=== PATIENT | male | born 1965 | race Caucasian/White ===

== ENCOUNTER → 2017-04-19 | Outpatient (CLI) | payer OTHER ==
--- NOTE | 2017-04-19 14:55 | PN ---
PROGRESS NOTE DATE OF SERVICE: 04/19/2017 A 51-year-old gentleman who has [facility] treatment of obstructive sleep apnea-hypopnea syndrome. I saw patient previously about 2 years ago. Patient continued to use his CPAP equipment every night without significant problem according to him. He is using CPAP even when he is taking any naps. No snoring with the machine. [place] Sleepiness Scale is 6, which is in normal range. I checked his CPAP unit. Usage is 25 nights more than 4 hours. Apnea-hypopnea index is only 1.2, which is absolutely perfect. Sometimes there is a leak from his mask. [place] Sleepiness Scale today is 6. MEDICATIONS: Lisinopril, metoprolol. PHYSICAL EXAM: Patient in no distress. BP 128/75, HR 62, RR 16, height 5, 7, weight 281, BMI 44, temp 97.6, oxygen saturation at room air 95%. OROPHARYNX: Extremely low position of soft palate. ABDOMEN: Obese. Neck Supple, no JVD. Thyroid is not palpable. LUNGS Clear to percussion and to auscultation. Good air exchange. No wheezing or rhonchi. HEART S1, S2 regular. No murmurs, gallops, or rubs. EXTREMITIES No clubbing or cyanosis. BUSINESS PROCESS EXPERT Awake, alert, and oriented X3. Cranial nerves 2 to 7 intact. There is no fasciculation or atrophy. noted. No focal deficits observed. IMPRESSION: 1. Obstructive sleep apnea-hypopnea syndrome. The patient demonstrated close to 100% compliance with treatment benefitting from treatment. 2. Obesity, patient increased his weight since previous visit. 3. History of atrial fibrillation, status post defibrillation and ablation procedure. Presently, normal sinus rate. 4. Hypertension. 5. Obesity. PLAN: 1. Prescription for all necessary CPAP supplies including mask, tube, filters. 2. Losing weight. 3. Sleep hygiene with regular time in bed for at least 8 hours. 4. No driving if feeling sleepiness. 5. Followup visit in 1 year or earlier if patient has any problems. Thank you very much for allowing me to participate in the management of your patient. Sincerely, Lalit Collins MD, PhD, FAASM Diplomat of [employer] [facility] MMODL / IJN: [id number] /
== END | disposition home or self-care (01) ==
LOC: SLEEP 13:48
PROVIDERS: ATTEND Internal Medicine
DX: G47.33 Obstructive sleep apnea (adult) (pediatric) (principal); E66.9 Obesity, unspecified; I10 Essential (primary) hypertension; Z99.89 Dependence on other enabling machines and devices; Z79.899 Other long term (current) drug therapy; Z68.41 Body mass index [BMI] 40.0-44.9, adult; Z86.79 Personal history of other diseases of the circulatory system

== ENCOUNTER 2018-01-30 02:16 | Inpatient (IN) | payer OTHER ==
[2018-01-30] MEDS ORDERED: HEPARIN SODIUM,PORCINE 5,000 UNIT/ML 1 ML VIAL IV STA (02:36)
[2018-01-30] MEDS ORDERED: SODIUM CHLORIDE 0.9% 1,000 ML IV STA ×2 (02:36)
[2018-01-30] MEDS ORDERED: MORPHINE SULFATE 4 MG/ML SYRINGE IVP STA (02:36)
[2018-01-30] MEDS ORDERED: ASPIRIN 81 MG PO STA (02:36)
--- NOTE | 2018-01-30 02:40 | ED ---
Chest Pain HPI - General Source: patient, RN notes reviewed, old records reviewed Mode of arrival: ambulatory Limitations: no limitations <Yanet Schmidt - Last Filed: 01/30/18 03:43> <Ailyn Landrum - Last Filed: 01/30/18 06:26> - General Chief Complaint: Chest Pain Stated Complaint: chest pain Time Seen by Provider: 01/30/18 02:28 - History of Present Illness Initial Comments: Patient is a 52-year-old male, who is a smoker with chief complaint of onset of chest pain at 10:30 this evening. He reports the pain radiates down the left shoulder. He reports no nausea or diaphoresis. He has a history of A. fib and had cardiac ablation by Dr. Temple in 2016. Patient states that he has a history of hypertension. He did take some Tylenol around 11:30 but states the symptoms continue to persist. Patient relates he has had no fevers or chills denies any cough or so she had shortness of breath. He states that he is feeling a heaviness on his chest. He denies any abdominal pain. (Yanet Schmidt) - Related Data Home Medications Medication Instructions Recorded Confirmed Lisinopril [Zestril] 5 mg PO BID 09/28/14 05/03/15 Rivaroxaban [Xarelto] 20 mg PO W/SUPPER 09/28/14 05/03/15 Albuterol Inhaler [Ventolin Hfa 1 - 2 puff INHALATION Q6HR PRN 01/14/15 05/04/15 Inhaler] Ibuprofen [Motrin] 200 - 400 mg PO Q6HR PRN 01/14/15 05/04/15 Metoprolol Tartrate [Lopressor] 50 mg PO BID 05/03/15 05/03/15 Allergies Allergy/AdvReac Type Severity Reaction Status Date / Time No Known Allergies Allergy Verified 01/30/18 02:27 Review of Systems ROS Other: All systems not noted in ROS Statement are negative. <Yanet Schmidt - Last Filed: 01/30/18 03:43> ROS Other: All systems not noted in ROS Statement are negative. <Ailyn Landrum - Last Filed: 01/30/18 06:26> ROS Statement: Those systems with pertinent positive or pertinent negative responses have been documented in the HPI. EKG Findings - EKG Comments: EKG Findings:: EKG performed at 223 shows sinus rhythm with PACs. He. Infarct age undetermined. Abnormal EKG noted. Ventricular rate of 66 bpm. OH interval is 158 ms. QRS duration is 112 ms. QT QTc is 420/440 ms. Evidence of T-wave inversions in lead II, III, and F aVF. <Yanet Schmidt - Last Filed: 01/30/18 03:43> Past Medical History Past Medical History: Atrial Fibrillation, Hypertension Additional Past Medical History / Comment(s): sleep apnea. History of Any Multi-Drug Resistant Organisms: None Reported Past Surgical History: Cardiac Ablation, Heart Catheterization Additional Past Surgical History / Comment(s): cardioversion Past Anesthesia/Blood Transfusion Reactions: Postoperative Nausea & Vomiting ( PONV) Past Psychological History: No Psychological Hx Reported Smoking Status: Current every day smoker Past Alcohol Use History: Rare Past Drug Use History: None Reported - Past Family History Mother Family Medical History: No Reported History <Yanet Schmidt - Last Filed: 01/30/18 03:43> General Exam Limitations: no limitations General appearance: alert, in no apparent distress Head exam: Present: atraumatic, normocephalic, normal inspection Eye exam: Present: normal appearance, PERRL, EOMI. Absent: scleral icterus, conjunctival injection, periorbital swelling ENT exam: Present: normal exam, mucous membranes moist Neck exam: Present: normal inspection. Absent: tenderness, meningismus, lymphadenopathy Respiratory exam: Present: normal lung sounds bilaterally. Absent: respiratory distress, wheezes, rales, rhonchi, stridor Cardiovascular Exam: Present: regular rate, normal rhythm, normal heart sounds. Absent: systolic murmur, diastolic murmur, rubs, gallop, clicks GI/Abdominal exam: Present: soft, normal bowel sounds. Absent: distended, tenderness, guarding, rebound, rigid Extremities exam: Present: normal inspection, full ROM, normal capillary refill. Absent: tenderness, pedal edema, joint swelling, calf tenderness Back exam: Present: normal inspection Neurological exam: Present: alert, oriented X3, CN II-XII intact Psychiatric exam: Present: normal affect, normal mood Skin exam: Present: warm, dry, intact, normal color. Absent: rash <Yanet Schmidt - Last Filed: 01/30/18 03:43> <Ailyn Landrum P - Last Filed: 01/30/18 06:26> - General Exam Comments Initial Comments: Patient is a 52-year-old male. Alert and oriented. Patient appears in no acute distress at this time. Patient relates his pain is a 4 out of 10. ( Yanet Schmidt) Vital Signs 01/30/18 01/30/18 01/30/18 02:22 03:34 03:55 Temperature 97.6 F Pulse Rate 63 60 63 Respiratory 20 17 17 Rate Blood Pressure 157/89 165/90 141/75 O2 Sat by Pulse 94 L 96 95 Oximetry 01/30/18 01/30/18 03:58 05:39 Temperature Pulse Rate 60 53 L Respiratory 17 17 Rate Blood Pressure 133/61 160/78 O2 Sat by Pulse 94 L 95 Oximetry Chest Pain MDM <Yanet Schmidt - Last Filed: 01/30/18 03:43> <Ailyn Landrum P - Last Filed: 01/30/18 06:26> - MDM 22-year-old male presents today with onset of chest pain starting at 10:30 this evening. Associated symptoms with pain remained on the left arm. Patient is a smoker, with a history of hypertension. His catalogue and special products manager was Dr. Temple who completed an ablation in 2016 for A. fib. Patient at this time does show ischemic changes on this EKG with inferior T waves in leads II, III, and F aVF. Patient was started on heparin, given an aspirin. He refused morphine. Chest x-ray shows cardiomegaly. And has a significantly elevated troponin of 1.750. Patient's case transferred over to Dr. Landrum, She will consult cardiology. Dr. Landrum discussed the case with Dr. Martino at this time. He will does request we give the Patient nitro. At this time I'll that the Patient for NSTEMI. (Yanet Schmidt) Patient was seen and evaluated with the mid-level provider, 52-year-old male with a history of hypertension, obesity, tobacco abuse who presents to the emergency department today with chest pain. Patient reports he also had chest pain with exertion while playing softball last week and chest pain that occurred at rest on Sunday. Both those episodes of chest pain or similar to this but resolved with rest. This chest pain began while at rest but persisted for multiple hours prompted him to come to the ER for further evaluation. is high risk for cardiac etiology of his chest pain. His initial EKG did reveal T-wave inversions in leads II, III, and F aVF which are suggestive of ischemia but no definitive ischemia or infarction. A cardiac workup and heparin were ordered. Initial chest x-ray with no acute abnormalities, heparin was started after chest x-ray was obtained. Initial troponin resulted elevated at 1.75, at that time cardiology was consult at. Dr. Hernandez recommended that we attempt treatment with nitro. Patient received 2 sublingual nitro and reported some improvement in the discomfort in his chest. Care was again discussed with Dr. Hernandez who recommended an IV nitro infusion and a plan for cardiac catheterization at 6:30 AM. Nitro infusion was ordered and initiated. Patient was admitted but decision was made to keep the patient in the emergency department for continuous observation by a physician until he goes to cardiac catheterization. Patient was noted to sleep comfortably, snore loudly throughout the remainder this ER visit. biological lab technician team arrived at approximately 6:10 AM consented the patient and transported to cardiac catheterization suite. (Ailyn Landrum) Disposition Is patient prescribed a controlled substance at d/c from ED?: No Time of Disposition: 03:45 <Yanet Schmidt - Last Filed: 01/30/18 03:43> <Ailyn Landrum - Last Filed: 01/30/18 06:26> Clinical Impression: NSTEMI (non-ST elevated myocardial infarction) Disposition: ADMITTED IP TO THIS HOSP Condition: Stable
[2018-01-30] MEDS ORDERED: HEPARIN SOD,PORK IN 0.45% NACL 25,000 UNIT in 0.45% NACL 1 500ML.BAG IV SCH (02:45)
[2018-01-30 02:59] LABS: Basophils # (A) 0.1 k/uL (0-0.2); Basophils % (A) 0 %; Eosinophils # (A) 0.1 k/uL (0-0.7); Eosinophils % (A) 1 %; HCT 46.6 % (39.0-53.0); HGB 14.8 gm/dL (13.0-17.5); Lymphocytes % (A) 23 %; MCH 30.4 pg (25.0-35.0); MCHC 31.8 g/dL (31.0-37.0); MCV 95.6 fL (80.0-100.0); Mean Platelet Volume 7.1; Monocytes # (A) 0.8 k/uL (0-1.0); Monocytes % (A) 7 %; Neutrophils # (A) 8.5 k/uL (1.3-7.7); Neutrophils % (A) 67 %; Platelet Count 218 k/uL (150-450); RBC 4.88 m/uL (4.30-5.90); RDW 13.2 % (11.5-15.5); WBC 12.8 k/uL (3.8-10.6)
[2018-01-30 03:09] LABS: ALT 33 U/L (21-72); AST 45 U/L (17-59); Albumin 4.1 g/dL (3.5-5.0); Alkaline Phosphatase 54 U/L (38-126); Anion Gap 9 mmol/L; Blood Urea Nitrogen 10 mg/dL (9-20); Calcium 8.8 mg/dL (8.4-10.2); Carbon Dioxide 21 mmol/L (22-30); Chloride 105 mmol/L (98-107); Glucose 127 mg/dL (74-99); Magnesium 2.2 mg/dL (1.6-2.3); Sodium 135 mmol/L (137-145); Total Bilirubin 0.7 mg/dL (0.2-1.3); Total Protein 7.5 g/dL (6.3-8.2)
[2018-01-30 03:14] LABS: Potassium 4.9 mmol/L (3.5-5.1)
[2018-01-30 03:22] LABS: Partial Thromboplastin Time 23.7 sec (22.0-30.0); Prothrombin Time 9.8 sec (9.0-12.0)
--- NOTE | 2018-01-30 03:25 | XR ---
EXAM: XR Chest, 2 Views CLINICAL HISTORY: ITS.REASON XR Reason: Chest Pain TECHNIQUE: Frontal and lateral views of the chest. COMPARISON: No relevant prior studies available. FINDINGS: Lungs: Unremarkable. No consolidation. Pleural space: Unremarkable. No pneumothorax. Heart: Cardiomegaly. Mediastinum: Unremarkable. Bones/joints: Unremarkable. IMPRESSION: Cardiomegaly.
[2018-01-30 03:36] LABS: Creatine Kinase MB 6.9 ng/mL (0.0-2.4)
[2018-01-30 03:38] LABS: Troponin I 1.75 ng/mL (0.000-0.034)
[2018-01-30] MEDS ORDERED: NITROGLYCERIN SL TABS 0.4 MG TAB SUBLINGUAL PRN ×2 (03:46→07:54)
[2018-01-30] MEDS: NITROGLYCERIN SL TABS 0.4 MG TAB SUBLINGUAL PRN ×2 (03:53→03:58)
[2018-01-30] MEDS ORDERED: NITROGLYCERIN OINT 1 INCH/GM PACKET TOPICAL STA (04:04)
[2018-01-30] MEDS ORDERED: NITROGLYCERIN-D5W PMX 50 MG in DEXTROSE/WATER 1 250ML.BAG IV ONE (04:20)
[2018-01-30] MEDS ORDERED: MIDAZOLAM 2 MG/2 ML VIAL ONE (06:25)
[2018-01-30] MEDS ORDERED: LIDOCAINE 1% INJ 10MG/ML (20 ML MDV) ONE ×2 (06:26→07:44)
[2018-01-30] MEDS ORDERED: HEPARIN SODIUM,PORCINE 30 ML 30 ML ONE (06:26)
[2018-01-30] MEDS ORDERED: fentaNYL (PF) 50 MCG/ML 2 ML AMP ONE ×2 (06:26→07:45)
[2018-01-30] MEDS: fentaNYL (PF) 50 MCG/ML 2 ML AMP IVP ONE ×2 (06:38→06:45)
[2018-01-30] MEDS ORDERED: MIDAZOLAM 2 MG/2 ML VIAL IVP ONE ×2 (06:38→06:45)
[2018-01-30] MEDS ORDERED: LIDOCAINE 2% INJ 20 MG/ML SQ ONE (06:39)
[2018-01-30] MEDS ORDERED: fentaNYL (PF) 50 MCG/ML 2 ML AMP IVP ONE (06:45)
[2018-01-30] MEDS ORDERED: SODIUM CHLORIDE 0.9% 1,000 ML IV ONE (06:49)
[2018-01-30] MEDS ORDERED: SODIUM CHLORIDE 0.9% 500 ML 500 ML IV ONE (06:50)
[2018-01-30] MEDS ORDERED: TICAGRELOR 90 MG TAB ONE (07:04)
[2018-01-30] MEDS ORDERED: BIVALIRUDIN BOLUS 250 MG/50 ML IV ONE (07:05)
[2018-01-30] MEDS ORDERED: TICAGRELOR 90 MG TAB PO ONE (07:05)
[2018-01-30] MEDS ORDERED: BIVALIRUDIN 250 MG in SODIUM CHLORIDE 0.9% 50 ML IV ONE ×2 (07:06→07:38)
[2018-01-30] MEDS ORDERED: IOPAMIDOL-370 125ML BTL INJ ONE (07:06)
[2018-01-30] MEDS ORDERED: niCARdipine 25 MG/10 ML VIAL ONE (07:18)
[2018-01-30] MEDS: NITROGLYCERIN 1000MCG/10ML SYRINGE INTRACORON ONE ×2 (07:25→07:26)
[2018-01-30] MEDS ORDERED: niCARdipine Syringe (1,000 mcg/10 mL) INTRACORON ONE (07:25)
[2018-01-30] MEDS ORDERED: fentaNYL (PF) 50 MCG/ML 2 ML AMP IV ONE (07:46)
[2018-01-30] MEDS ORDERED: IOPAMIDOL-370 100ML BTL INJ ONE (07:47)
[2018-01-30] MEDS ORDERED: RX INFO: IV CONTRAST WAS GIVEN 1 EACH MISC MISCELLANE PRN (07:54)
[2018-01-30] MEDS ORDERED: ZOLPIDEM 5 MG TAB PO PRN (07:54)
[2018-01-30] MEDS ORDERED: MAG HYDROX/AL HYDROX/SIMETH 30 ML CUP PO PRN (07:54)
[2018-01-30] MEDS ORDERED: ATROPINE SULFATE 0.1 MG/ML 10ML SYRINGE IV PRN (07:54)
--- NOTE | 2018-01-30 07:59 | CONS ---
CONSULTATION Mr. Gonzalez came to the emergency room with a complaint of chest discomfort. Patient started having chest discomfort around 10 o'clock. The pain was in the moderate to severe in substernal area radiating to the arms. Initial troponin was high. EKG showed T-wave inversion and patient was given nitroglycerin and Dilaudid with relief of the pain. In view of the abnormal EKG and positive troponin, patient was advised urgent cardiac catheterization. This patient has been having on and off chest discomfort for the last 2 weeks. Patient has a past history of atrial fibrillation and for which he has undergone for which he has undergone cardioversion as well as Afib ablation. He denies any history of diabetes or hypertension. He does have a history of sleep apnea. He is not taking any medications. He does not have any reoccurrence of atrial fibrillation since ablation. PAST MEDICAL HISTORY: No history of any major surgeries. REVIEW OF THE SYSTEM: Otherwise unremarkable. PHYSICAL EXAMINATION: At present reveals a 52-year-old obesely-built gentleman who does not appear to be in any acute distress. Blood pressure is 130/80 mmHg, heart rate is 70 per minute. HEENT examination is negative. Neck is supple. There is no increase in jugular venous pressure. Both the carotid pulses are felt, there is no bruit. Chest is symmetrical. Heart, the PMI is not felt. First and second heart sounds are normal. There is no evidence of any murmur. Lungs are clinically clear to auscultation and percussion. Abdomen is soft. Liver and spleen are not enlarged. Bowel sounds are heard. EXTREMITIES: Peripheral pulsations are 2+. EKG shows T-wave inversions in the inferior leads. Troponin is 1.75. IMPRESSION: 1. Patient history suggestive of non ST-segment elevation myocardial infarction. 2. History of persistent atrial fibrillation. RECOMMENDATIONS: Will proceed with the cardiac catheterization. MMODL / IJN: [id number] /
[2018-01-30] MEDS ORDERED: SODIUM CHLORIDE 0.9% 1,000 ML IV SCH (08:00)
--- NOTE | 2018-01-30 08:08 | CC ---
CARDIAC CATHETERIZATION REPORT Mr. Gonzalez is a 52-year-old gentleman who came with chest pain. EKG showed T-wave inversions in the inferior leads. Initial troponin was 1.[address]- segment elevation myocardial infarction. In view of that, the patient was advised urgent cardiac catheterization procedure. The right groin was prepped and draped in the usual manner and the skin was infiltrated with 2% Xylocaine. The right femoral artery was entered using Seldinger technique, a #6-Kiswahili sheath was placed in. Selective coronary angiography was then performed in multiple projections. The patient tolerated the procedure well. Moderate sedation was used. Total sedation time was 19 minutes. SELECTIVE CORONARY ANGIOGRAPHY: Left main coronary artery is normal and patent. LAD is a good caliber blood vessel and gives rise to a small size diagonal branch. LAD and its branches are normal. Circumflex coronary artery is codominant in distribution, gives rise to 2 good size PLV branches. Circumflex coronary artery and its branches are normal. Right coronary artery is normal caliber blood vessel and the midportion of the right coronary artery has a 99% stenosis with a possible thrombus. FINAL IMPRESSION: There is 99% stenosis in the right coronary artery. LAD and circumflex coronary arteries are normal. PLAN: To proceed with the stent to the RCA. MMODL / IJN: [id number] /
[2018-01-30 08:31] LABS: Glucose,Whole Blood 122 mg/dL (75-99)
[2018-01-30] MEDS: METOPROLOL TARTRATE 50 MG TAB PO SCH ×3 (09:32→20:10)
[2018-01-30] MEDS: LISINOPRIL 5 MG TAB PO SCH (09:33)
[2018-01-30] MEDS: ASPIRIN 81 MG PO SCH (09:33)
[2018-01-30 10:29] VITALS: BMI 39.5
[2018-01-30] MEDS: NICOTINE 21MG/24HR PATCH TRANSDERM SCH (11:12)
--- NOTE | 2018-01-30 12:34 | P.HPIM ---
History of Present Illness this is a pleasant 52 years old male with past medical history of hypertension, coronary artery disease, atrial fibrillation/flutter, obstructive sleep apnea on CPAP. He doesn't follow up with his PCP. His family resource coordinator into this Dr. Martino. He presents with progressive chest pain attacks over the last 2 weeks. First happened about 2 weeks ago he have chest pain central felt like tightness that lasted for 30 minutes. About 5-6 days ago he had this similar chest tightness is/pain and associated with some dyspnea that lasted this time for 12 hours. And one day prior to admission to the hospital he have another third attack of similar chest pain and tightness that gets worse gradually, although the patient went to do golfing and then he went to his room at that time his chest pain was getting worse and is not relieved by medications including analgesics and restart googling his symptoms which the mentioning of heart attacks he decided to come to the emergency room. On admission his troponin went up from 1.7-4.2. Initial EKG shows sinus bradycardia at [address] deviation, associated with T-wave inversion in the inferior leads. Vitas looks stable. Mild leukocytosis at 12.8 K. [place] CBC and BMP was unremarkable. Patient underwent cardiac evaluation and followed by cardiac catheterization which showed 99% stenosis in the right coronary artery and he got stent to his RCA. Review of Systems CONSTITUTIONAL: No fever, no malaise, no fatigue. HEENT: No recent visual problems or hearing problems. Denied any sore throat. CARDIOVASCULAR: No orthopnea, PND, no palpitations, no syncope. PULMONARY: No shortness of breath, no cough, no hemoptysis. GASTROINTESTINAL: No diarrhea, no nausea, no vomiting, no abdominal pain. Normoactive bowel sounds. NEUROLOGICAL: No headaches, no weakness, no numbness. HEMATOLOGICAL: Denies any bleeding or petechiae. GENITOURINARY: Denies any burning micturition, frequency, or urgency. MUSCULOSKELETAL/RHEUMATOLOGICAL: Denies any joint pain, swelling, or any muscle pain. ENDOCRINE: Denies any polyuria or polydipsia. Past Medical History Past Medical History: Atrial Fibrillation, Atrial Flutter, Chest Pain / Angina, Hypertension, Osteoarthritis (OA), Sleep Apnea/CPAP/BIPAP Additional Past Medical History / Comment(s): 01/30/18 Pt admitted with NSTEMI. Other hx: Obstructive sleep apnea with bipap use, arthritis bilateral elbows, hips and knees, past fractures bilateral wrists/ankles. History of Any Multi-Drug Resistant Organisms: None Reported Past Surgical History: Cardiac Ablation, Heart Catheterization Additional Past Surgical History / Comment(s): 01/30/18 PCI with 2 stents to mid RCA, ANTONIA/Cardioversion, 2014 cardiac ablation for aflutter, 2016 cardiac ablation for Afib, colonoscopy. Past Anesthesia/Blood Transfusion Reactions: Postoperative Nausea & Vomiting ( PONV) Smoking Status: Current every day smoker - Past Family History Father Family Medical History: COPD Additional Family Medical History / Comment(s): Father of emphysema. He was a smoker. Mother Family Medical History: Diabetes Mellitus Additional Family Medical History / Comment(s): Mother is . She had depression. Medications and Allergies Home Medications Medication Instructions Recorded Confirmed Type Acetaminophen Tab [Tylenol] 1,000 mg PO DAILY 01/30/18 01/30/18 History Lisinopril [Prinivil] 5 mg PO DAILY 01/30/18 01/30/18 History Metoprolol Succinate [Toprol XL] 50 mg PO DAILY 01/30/18 01/30/18 History Allergies Allergy/AdvReac Type Severity Reaction Status Date / Time No Known Allergies Allergy Verified 01/30/18 09:36 Physical Exam Vitals: Vital Signs Temp Pulse Resp BP Pulse Ox 01/30/18 10:00 61 17 131/76 96 01/30/18 09:00 55 L 16 123/71 92 L 01/30/18 08:23 97.6 F 56 L 17 123/71 94 L 01/30/18 05:39 53 L 17 160/78 95 01/30/18 03:58 60 17 133/61 94 L 01/30/18 03:55 63 17 141/75 95 01/30/18 03:34 60 17 165/90 96 01/30/18 02:22 97.6 F 63 20 157/89 94 L Intake and Output 01/29/18 01/30/18 01/30/18 22:59 06:59 14:59 Intake Total 1950 257 Output Total 450 Balance 1950 -193 Intake: IV 650 257 Sodium Chloride 0.9% 1, 200 000 ml @ 100 mls/hr IV . Q10H [facility] Rx#:[id number] Amount of Fluid Infused ( 1300 ml) Output: Urine 450 Other: Weight 117.934 kg 117.934 kg GENERAL: The patient is alert and oriented x3, not in any acute distress. Well developed, well nourished. HEENT: Pupils are round and equally reacting to light. EOMI. No scleral icterus. No conjunctival pallor. Normocephalic, atraumatic. No pharyngeal erythema. No thyromegaly. CARDIOVASCULAR: S1 and S2 present. No murmurs, rubs, or gallops. PULMONARY: Chest is clear to auscultation, no wheezing or crackles. ABDOMEN: Soft, nontender, nondistended, normoactive bowel sounds. No palpable organomegaly. MUSCULOSKELETAL: No joint swelling or deformity. EXTREMITIES: No cyanosis, clubbing, or pedal edema. NEUROLOGICAL: Gross neurological examination did not reveal any focal deficits. SKIN: No rashes. Results CBC & Chem 7: 01/30/18 02:28 01/30/18 02:28 Labs: Abnormal Lab Results - Last 24 Hours (Table) 01/30/18 01/30/18 01/30/18 Range/Units 02:28 02:28 02:28 WBC 12.8 H (3.8-10.6) k/uL Neutrophils # 8.5 H (1.3-7.7) k/uL Sodium 135 L (137-145) mmol/L Carbon Dioxide 21 L (22-30) mmol/L Glucose 127 H (74-99) mg/dL POC Glucose (mg/dL) (75-99) mg/dL Total Creatine Kinase 273 H (55-170) U/L CK-MB (CK-2) 6.9 H (0.0-2.4) ng/mL Troponin I 1.750 H* (0.000-0.034) ng/mL 01/30/18 01/30/18 Range/Units 05:58 08:28 WBC (3.8-10.6) k/uL Neutrophils # (1.3-7.7) k/uL Sodium (137-145) mmol/L Carbon Dioxide (22-30) mmol/L Glucose (74-99) mg/dL POC Glucose (mg/dL) 122 H (75-99) mg/dL Total Creatine Kinase (55-170) U/L CK-MB (CK-2) (0.0-2.4) ng/mL Troponin I 4.280 H* (0.000-0.034) ng/mL Thrombosis Risk Factor Assmnt - Choose All That Apply Any of the Below Risk Factors Present?: Yes Each Factor Represents 1 point: Acute OR, Age 41-60 years, Medical pt on bed rest, Obesity (BMI >25) Other Risk Factors: Yes Each Risk Factor Represents 2 Points: Patient confined to bed Other congenital or acquired thrombophilia - If yes, enter type in comment: No Thrombosis Risk Factor Assessment Total Risk Factor Score: 6 Thrombosis Risk Factor Assessment Level: High Risk Assessment and Plan Assessment: NSETMI. Status post cardiac cath and stenting of the RCA History of coronary artery disease and History of atrial fibrillation, rate controlled Essential hypertension History obstructive sleep apnea on CPAP Plan: This is a pleasant 52 years old male who presents with non-STEMI. Status post cardiac cath and stenting of the RCA. Labs and medication review. Continue with antiplatelet therapy. Labs and medication were resumed. Continue same treatment. Continue with symptomatic treatment. Resume home medication. Monitor lytes and vitals. DVT and GI prophylaxis. Further recommendationsof the clinical course of the patient DVT prophylaxis: xarelto GI Prophylaxis: Pepcid Prognosis is guarded
[2018-01-30 13:41] LABS: Creatine Kinase MB 70.5 ng/mL (0.0-2.4)
[2018-01-30 13:48] LABS: Troponin I 35.7 ng/mL (0.000-0.034)
[2018-01-30] MEDS ORDERED: RIVAROXABAN 15 MG TAB PO SCH (17:30)
[2018-01-30 18:48] LABS: Creatine Kinase MB 45.7 ng/mL (0.0-2.4)
[2018-01-30 18:55] LABS: Troponin I 21.8 ng/mL (0.000-0.034)
[2018-01-30] MEDS: ATORVASTATIN 80 MG TAB PO SCH (20:09)
[2018-01-30] MEDS: FAMOTIDINE 20 MG/2 ML VIAL IV SCH (20:10)
[2018-01-31 06:47] LABS: Cholesterol 205 mg/dL (<200); HDL Cholesterol 42 mg/dL (40-60); LDL Cholesterol,Calculated 138 mg/dL (0-99); Triglycerides 123 mg/dL (<150)
--- NOTE | 2018-01-31 09:33 | PTCA ---
PERCUTANEOUSTRANS CORORONARY ANGIOGRAPHY DATE OF SERVICE: 01/30/2018 PERFORMING PHYSICIAN: Israel Cordero MD. PROCEDURE PERFORMED: 1. An aspiration thrombectomy from the mid right coronary artery. 2. Successful stenting of the mid RCA using 4.0 x 23 and 4.0 x 8 mm Xience drug- eluting stent which was post dilated using 4.5 mm NC balloon with good angiographic results and reduction of stenosis from 99% to 0%. 3. Left heart catheterization. INDICATION: This is a pleasant 52-year-old gentleman who sees Dr. Oneill in the office as an outpatient with hypertension as well as paroxysmal atrial fibrillation, who presented to the hospital with chest discomfort and was seen by Dr. Martino where he was diagnosed with acute non ST elevation myocardial infarction. He underwent a heart catheterization by Dr. Martino and was found to have critical disease involving the mid RCA with plaque rupture and thrombus formation. We decided to intervene on the RCA after the angiogram. APPROACH: Right common femoral artery. COMPLICATION: None. LEVEL OF SEDATION: Moderate sedation length of 54 minutes. PROCEDURE DESCRIPTION: After diagnostic heart catheterization was performed by Dr. Martino and after reviewing the angiogram, we decided to pursue with an intervention on the right coronary artery. The anticoagulation was initiated using Angiomax. Subsequently, I did engage the right using JR4 guide. I tried to wire the right coronary artery using a whisper wire, but the wire was going toward the acute marginal branch of the right. I left the wire there. Then I wired the right coronary artery using a run-through wire. Then I pulled the whisper wire out. After that, I did aspiration thrombectomy using the export catheter. Subsequently, I did balloon angioplasty using 3.5 x 12 mm balloon before I deployed 4.0 x 23 mm Xience WAYNE where the stent was positioned under fluoroscopy guidance and deployed under 14 atmospheres for 20 seconds. The following angiogram showed possible edge dissection of the proximal edge of the stent. Because of that, I decided to cover to cover that with 8 mm 4.0 stent. So the second stent was again positioned under fluoroscopy guidance and deployed under fluoroscopy guidance where it was deployed under 16 atmospheres for 20 seconds. After that, I postdilated both the stent using 4.5 mm NC balloon which was inflated under 16 atmospheres for 20 seconds with the following angiogram showing excellent angiographic results with reduction of stenosis from 99% to 0%. At that point, the procedure was completed without any complication. HEMODYNAMICS: The left ventricular end-diastolic pressure was about 12 mmHg without significant gradient across the aortic valve. POSTPROCEDURE MANAGEMENT: 1. Dual anti-platelet therapy. 2. Risk factors modifications. 3. Follow up with the patient. DAI / JASON: [id number] /
[2018-01-31] MEDS: CLOPIDOGREL 75 MG TAB PO SCH (09:40)
[2018-01-31] MEDS: LISINOPRIL 5 MG TAB PO SCH (09:44)
[2018-01-31] MEDS: ASPIRIN 81 MG PO SCH (09:44)
[2018-01-31] MEDS: METOPROLOL TARTRATE 50 MG TAB PO SCH ×2 (09:45→21:34)
[2018-01-31] MEDS: DOCUSATE 100 MG CAP PO SCH ×2 (09:45→21:27)
[2018-01-31] MEDS: FAMOTIDINE 20 MG/2 ML VIAL IV SCH ×2 (09:46→09:48)
[2018-01-31] MEDS: NICOTINE 21MG/24HR PATCH TRANSDERM SCH (09:46)
--- NOTE | 2018-01-31 09:54 | PN ---
PROGRESS NOTE Mr. Gonzalez is a 52-year-old male who presented with symptoms of chest discomfort. He ruled in for myocardial infarction, underwent stenting of his right coronary artery. He is doing well this morning. He has no symptoms of chest pain. His breathing has been stable. He denies any dizziness, palpitation. He denies any nausea. Hemodynamically stable. He had a prior history of atrial fibrillation and ablation, but has not been anticoagulated for the last 2 years and he has no evidence of recurrent atrial fibrillation. He continues on aspirin once a day, Plavix 75 mg daily, lisinopril 5 mg daily, metoprolol tartrate 50 mg twice a day, and Xarelto. PHYSICAL EXAMINATION: Blood pressure 128/60 with a heart rate in the 60s. LUNGS: Clear. HEART: Regular rate and rhythm. S1, S2. No S3. No rub. ABDOMEN: Soft, nontender, obese. EXTREMITIES: No edema, right groin hematoma. LAB DATA: Revealed a peak troponin is 35.7. His cholesterol is 205, LDL of 138. IMPRESSION: 1. Status post stenting of the right coronary artery in the setting of myocardial infarction. 2. History of hypertension. 3. Hyperlipidemia. 4. Prior history of atrial fibrillation, status post ablation, not anticoagulated for the last 2 years. RECOMMENDATION: I will stop the anticoagulation at this time. Continue into in dual antiplatelet treatment. Increase his level activity. He should be able to be transferred to telemetry floor. Will obtain an echocardiogram with Doppler to evaluate left ventricular systolic function and depending on his progress, further recommendation will be made. MMODL / IJN: [id number] /
--- NOTE | 2018-01-31 09:57 | ECHOF ---
Referral Reason:mi MEASUREMENTS -------- HEIGHT: 172.7 cm WEIGHT: 117.5 kg BP: 128/65 RVIDd: 4.1 cm (< 3.3) IVSd: 1.2 cm (0.6 - 1.1) LVIDd: 5.9 cm (3.9 - 5.3) LVPWd: 1.2 cm (0.6 - 1.1) IVSs: 1.8 cm LVIDs: 3.9 cm LVPWs: 1.7 cm LAESV Index (A-L): 22.22 ml/m Ao Diam: 3.2 cm (2.0 - 3.7) AV Cusp: 2.1 cm (1.5 - 2.6) LA Diam: 4.0 cm (2.7 - 3.8) MV E Jesus: 0.86 m/s MV DecT: 169 ms MV A Jesus: 0.43 m/s MV E/A Ratio: 1.98 RAP: 5.00 mmHg RVSP: 14.59 mmHg FINDINGS -------- Resting bradycardia (HR<60bpm). This was a technically difficult study with suboptimal views. The left ventricular size is normal. There is mild concentric left ventricular hypertrophy. Overa ll left ventricular systolic function is mildly impaired with, an EF between 45 - 50 %. Inferior Hy pokinesis The right ventricle is normal in size and function. Normal LA size by volume 22+/-6 ml/m2. RA appears enlarged. 3 ml of Lumason was utilized for enhancement of images. Aortic valve is trileaflet and is mildly thickened. There is no evidence of aortic regurgitation. There is no evidence of aortic stenosis. The mitral valve leaflets are mildly thickened. There is trace to mild mitral regurgitation. Trace tricuspid regurgitation present. Right ventricular systolic pressure is normal at < 35 mmHg. There is no evidence of pulmonary hypertension. Trace/mild (physiologic) pulmonic regurgitation. The aortic root size is normal. Normal inferior vena cava with normal inspiratory collapse consistent with estimated right atrial pre ssure of 5 mmHg. There is no pericardial effusion. CONCLUSIONS -------- 1. Resting bradycardia (HR<60bpm). 2. This was a technically difficult study with suboptimal views. 3. The left ventricular size is normal. 4. There is mild concentric left ventricular hypertrophy. 5. Overall left ventricular systolic function is mildly impaired with, an EF between 45 - 50 %. 6. Inferior Hypokinesis 7. Normal LA size by volume 22+/-6 ml/m2. 8. RA appears enlarged. 9. 3 ml of Lumason was utilized for enhancement of images. 10. Aortic valve is trileaflet and is mildly thickened. 11. The mitral valve leaflets are mildly thickened. 12. There is trace to mild mitral regurgitation. 13. Trace tricuspid regurgitation present. 14. Right ventricular systolic pressure is normal at < 35 mmHg. 15. There is no evidence of pulmonary hypertension. 16. Trace/mild (physiologic) pulmonic regurgitation. 17. The aortic root size is normal. 18. There is no pericardial effusion. HOSPITAL SOCIAL WORKER: Adrian Doshi RDCS
[2018-01-31] MEDS: FAMOTIDINE 20 MG TAB PO SCH (21:35)
[2018-01-31] MEDS: ATORVASTATIN 80 MG TAB PO SCH (21:37)
--- NOTE | 2018-02-01 00:16 | P.PN ---
Subjective this is a pleasant 52 years old male with past medical history of hypertension, coronary artery disease, atrial fibrillation/flutter, obstructive sleep apnea on CPAP. He doesn't follow up with his PCP. His securities attorney into this Dr. Martino. He presents with progressive chest pain attacks over the last 2 weeks. First happened about 2 weeks ago he have chest pain central felt like tightness that lasted for 30 minutes. About 5-6 days ago he had this similar chest tightness is/pain and associated with some dyspnea that lasted this time for 12 hours. And one day prior to admission to the hospital he have another third attack of similar chest pain and tightness that gets worse gradually, although the patient went to do golfing and then he went to his room at that time his chest pain was getting worse and is not relieved by medications including analgesics and restart googling his symptoms which the mentioning of heart attacks he decided to come to the emergency room. On admission his troponin went up from 1.7-4.2. Initial EKG shows sinus bradycardia at [address] deviation, associated with T-wave inversion in the inferior leads. Vitas looks stable. Mild leukocytosis at 12.8 K. rest of CBC and BMP was unremarkable. Patient underwent cardiac evaluation and followed by cardiac catheterization which showed 99% stenosis in the right coronary artery and he got stent to his RCA. 01/31/2018 pt is lying in bed not in distress, no chest pain , no dyspnea, no change in urine or bowel habits, no fever . vitals remain stable, creatinine is stable , check labs in the morning ,anticoagulation was stopped by cardiology team , repeat echo showing ejection fraction of 40-45% with inferior wall hypokanesia, cardiology team are following the pt , he was transferred to general medical floor Objective - Vital Signs Vital signs: Vital Signs Temp 98.1 F 01/31/18 12:00 Pulse 69 01/31/18 13:00 Resp 20 01/31/18 13:00 BP 138/68 01/31/18 13:00 Pulse Ox 96 01/31/18 13:00 Intake & Output 01/30/18 01/31/18 01/31/18 18:59 06:59 18:59 Intake Total 677 520 525 Output Total 9097 8540 150 Balance -1123 -1905 375 Weight 117.934 kg 117.934 kg Intake: IV 677 120 50 Sodium Chloride 0.9% 1, 620 120 50 000 ml @ 100 mls/hr IV . Q10H [facility] Rx#:[id number] Oral 400 475 Output: Urine 1800 2425 150 Other: Voiding Method Urinal Urinal Urinal - Labs CBC & Chem 7: 01/30/18 02:28 01/31/18 05:38 Labs: Abnormal Lab Results - Last 24 Hours (Table) 01/30/18 01/30/18 01/31/18 Range/Units 12:40 17:48 05:38 Total Creatine Kinase 1164 H* 934 H (55-170) U/L CK-MB (CK-2) 70.5 H 45.7 H (0.0-2.4) ng/mL Troponin I 35.700 H* 21.800 H* (0.000-0.034) ng/mL Cholesterol 205 H (<200) mg/dL LDL Cholesterol, Calc 138 H (0-99) mg/dL
[2018-02-01 05:26] LABS: Basophils % (A) 0 %; Eosinophils # (A) 0.2 k/uL (0-0.7); Eosinophils % (A) 2 %; HCT 44.8 % (39.0-53.0); HGB 14.9 gm/dL (13.0-17.5); Lymphocytes # (A) 2.4 k/uL (1.0-4.8); Lymphocytes % (A) 20 %; MCH 31.3 pg (25.0-35.0); MCHC 33.2 g/dL (31.0-37.0); Mean Platelet Volume 7.2; Monocytes # (A) 0.7 k/uL (0-1.0); Monocytes % (A) 6 %; Neutrophils # (A) 8.1 k/uL (1.3-7.7); Neutrophils % (A) 70 %; Platelet Count 206 k/uL (150-450); RBC 4.76 m/uL (4.30-5.90); RDW 12.8 % (11.5-15.5); WBC 11.5 k/uL (3.8-10.6)
[2018-02-01 06:41] LABS: Anion Gap 7 mmol/L; Blood Urea Nitrogen 11 mg/dL (9-20); Calcium 8.9 mg/dL (8.4-10.2); Carbon Dioxide 24 mmol/L (22-30); Chloride 104 mmol/L (98-107); Glucose 137 mg/dL (74-99); Potassium 4.5 mmol/L (3.5-5.1); Sodium 135 mmol/L (137-145)
[2018-02-01 09:11] VITALS: BP 141/74; PULSE 56; RESP 16; TEMP 98.2
[2018-02-01] MEDS: FAMOTIDINE 20 MG TAB PO SCH (09:16)
[2018-02-01] MEDS: CLOPIDOGREL 75 MG TAB PO SCH (09:21)
[2018-02-01] MEDS: NICOTINE 21MG/24HR PATCH TRANSDERM SCH (09:21)
[2018-02-01] MEDS: ASPIRIN 81 MG PO SCH (09:21)
[2018-02-01] MEDS: METOPROLOL TARTRATE 50 MG TAB PO SCH ×2 (09:21→18:09)
[2018-02-01] MEDS: DOCUSATE 100 MG CAP PO SCH (09:21)
[2018-02-01] MEDS: LISINOPRIL 5 MG TAB PO SCH (09:21)
--- NOTE | 2018-02-01 10:13 | PN ---
PROGRESS NOTE Mr. Gonzalez is a 52-year-old male who presented with an acute myocardial infarction, underwent stenting of the right coronary artery. He is doing well today, ambulating without difficulty, denying any chest pain, no dizziness or palpitation. He denies any nausea. He denies any recurrent symptoms. An echocardiogram revealed ejection fraction of 45% to 50% with no significant valvular disease. He continues to be on aspirin once a day, Lipitor 80 mg daily, Plavix 75 mg daily, lisinopril 5 mg daily, metoprolol tartrate 50 mg twice a day, nicotine patch. PHYSICAL EXAMINATION: Blood pressure 120/60 with a heart rate in the 60s. LUNGS: Clear. HEART: Regular rate and rhythm. S1, S2. No S3. No rub. ABDOMEN: Soft, obese, nontender. EXTREMITIES: No edema. LAB DATA: BUN and creatinine 11 and 0.79. Hemoglobin of 14.9. His peak troponin is 35.7. IMPRESSION: 1. Status post inferior myocardial infarction and stenting of the right coronary artery. 2. Hypertension. 3. Hyperlipidemia. RECOMMENDATION: From the cardiac standpoint, he should be able to be discharged home today and followed as an outpatient with Dr. Martino. Patient has a prior history of atrial fibrillation ablation, but has not been anticoagulated for over 2 years since he has maintained a sinus mechanism. MMODL / IJN: [id number] /
[2018-02-01] MEDS: ATORVASTATIN 80 MG TAB PO SCH (18:09)
--- NOTE | 2018-02-01 18:37 | P.DS ---
Providers Date of admission: 01/30/18 04:04 Expected date of discharge: 02/01/18 Attending physician: Katia Evans Consults: 01/30/18 03:46 Consult Physician Urgent Consulting Provider: Yaw Martino Consult Reason/Comments: NSTEMI Do you want consulting provider notified?: Yes 01/30/18 07:54 Consult Physician Routine Consulting Provider: [facility] Consult Reason/Comments: Post Interventional patient Do you want consulting provider notified?: Already Contacted Primary care physician: Stated None Hospital Course: Mr. Gonzalez is a pleasant 52 years old male with past medical history of hypertension, coronary artery disease, atrial fibrillation/flutter, obstructive sleep apnea on CPAP. He doesn't follow up with his PCP. His sensory scientist into this Dr. Martino. He presents with progressive chest pain attacks over the last 2 weeks. First happened about 2 weeks ago he have chest pain central felt like tightness that lasted for 30 minutes. About 5-6 days ago he had this similar chest tightness is/pain and associated with some dyspnea that lasted this time for 12 hours. And one day prior to admission to the hospital he have another third attack of similar chest pain and tightness that gets worse gradually, although the patient went to do golfing and then he went to his room at that time his chest pain was getting worse and is not relieved by medications including analgesics and restart googling his symptoms which the mentioning of heart attacks he decided to come to the emergency room. On admission his troponin went up from 1.7-4.2. Initial EKG shows sinus bradycardia at [address] deviation, associated with T-wave inversion in the inferior leads. Vitas looks stable. Mild leukocytosis at 12.8 K. [place] CBC and BMP was unremarkable. Patient underwent cardiac evaluation and followed by cardiac catheterization which showed 99% stenosis in the right coronary artery and he got stent to his RCA. Patient is doing well post cath. Ablating without difficulty. Patient denies having any chest pain and difficulty in breathing. patient also and an echocardiogram revealing ejection fraction of 45-50% without significant valvular heart disease. Patient was on aspirin, Lipitor, Plavix, lisinopril, metoprolol as prescribed by cardiology. He was cleared by them to be discharged home today. Patient's vitals at the time of discharge temperature 98.2 heart rate 60s to 70s , respiratory rate 16-20, blood pressure 140% 74 surgery in 96% on room air. Physical Exam GENERAL: The patient is alert and oriented x3, not in any acute distress. Well developed, well nourished. HEENT: Pupils are round and equally reacting to light. EOMI. No scleral icterus. No conjunctival pallor. Normocephalic, atraumatic. No pharyngeal erythema. No thyromegaly. CARDIOVASCULAR: S1 and S2 present. No murmurs, rubs, or gallops. PULMONARY: Chest is clear to auscultation, no wheezing or crackles. ABDOMEN: Soft, nontender, nondistended, normoactive bowel sounds. No palpable organomegaly. MUSCULOSKELETAL: No joint swelling or deformity. EXTREMITIES: No cyanosis, clubbing, or pedal edema. NEUROLOGICAL: Gross neurological examination did not reveal any focal deficits. SKIN: No rashes. DISCHARGE DIAGNOSIS NSETMI. Status post cardiac cath and stenting of the RCA History of coronary artery disease and History of atrial fibrillation, rate controlled Essential hypertension History obstructive sleep apnea on CPAP Plan; she and has scripts written by cardiology for aspirin, Lipitor, Plavix, lisinopril and metoprolol. He is being discharged home in a stable condition and advised to follow up with cardiology Dr. Stevenson and in 2-3 days. Also discussed that the patient should be compliant with his antiplatelet therapy due to recent stent placement. Patient Condition at Discharge: Stable Plan - Discharge Summary Discharge Rx Participant: No New Discharge Prescriptions: New Aspirin 81 mg PO DAILY chew Atorvastatin [Lipitor] 80 mg PO HS #0 tab Clopidogrel [Plavix] 75 mg PO DAILY #0 tab Lisinopril [Zestril] 5 mg PO DAILY tab Nitroglycerin Sl Tabs [Nitrostat] 0.4 mg SUBLINGUAL Q5M PRN tab PRN Reason: Chest Pain Continue Metoprolol Succinate [Toprol XL] 50 mg PO DAILY Lisinopril [Prinivil] 5 mg PO DAILY Acetaminophen Tab [Tylenol] 1,000 mg PO DAILY Discharge Medication List Acetaminophen Tab [Tylenol] 1,000 mg PO DAILY 01/30/18 [History] Lisinopril [Prinivil] 5 mg PO DAILY 01/30/18 [History] Metoprolol Succinate [Toprol XL] 50 mg PO DAILY 01/30/18 [History] Aspirin 81 mg PO DAILY chew 11/02/18 [Rx] Atorvastatin [Lipitor] 80 mg PO HS #0 tab 02/01/18 [Rx] Clopidogrel [Plavix] 75 mg PO DAILY #0 tab 02/01/18 [Rx] Lisinopril [Zestril] 5 mg PO DAILY tab 02/01/18 [Rx] Nitroglycerin Sl Tabs [Nitrostat] 0.4 mg SUBLINGUAL Q5M PRN tab 02/01/18 [Rx] Follow up Appointment(s)/Referral(s): Az Oneill MD [STAFF PHYSICIAN] - 1 Week None,Stated [Primary Care Provider] - 1-2 days Yaw Martino MD [STAFF PHYSICIAN] - 1 Week Patient Instructions/Handouts: *Surgery [facility] - After Heart Catheterization - Surgical Garment Fitter Instructions, Right Heart Catheterization (DC), How to Stop Smoking (DC), Cigarette Smoking and Your Health (GEN) Discharge Disposition: HOME SELF-CARE
== END 2018-02-01 20:26 | disposition home or self-care (01) | DRG 247 ==
LOC: EC 02:16 → 3SCARD 04:04 → 2SICU 07:46
PROVIDERS: ADMIT Hospitalist; ATTEND Hospitalist
PROC: 02C03ZZ Extirpation of Matter from Coronary Artery, One Artery, Percutaneous Approach (ICD-10-PCS; 2018-01-30)
PROC: B2111ZZ Fluoroscopy of Multiple Coronary Arteries using Low Osmolar Contrast (ICD-10-PCS; 2018-01-30)
PROC: 4A023N7 Measurement of Cardiac Sampling and Pressure, Left Heart, Percutaneous Approach (ICD-10-PCS; principal; 2018-01-30 06:26)
PROC: 027034Z Dilation of Coronary Artery, One Artery with Drug-eluting Intraluminal Device, Percutaneous Approach (ICD-10-PCS; 2018-01-30 06:26)
DX: I21.4 Non-ST elevation (NSTEMI) myocardial infarction (principal); I48.1 Persistent atrial fibrillation; I48.92 Unspecified atrial flutter; E78.5 Hyperlipidemia, unspecified; F17.200 Nicotine dependence, unspecified, uncomplicated; G47.33 Obstructive sleep apnea (adult) (pediatric); I10 Essential (primary) hypertension; I25.10 Atherosclerotic heart disease of native coronary artery without angina pectoris; I25.83 Coronary atherosclerosis due to lipid rich plaque; Z79.02 Long term (current) use of antithrombotics/antiplatelets; Z79.82 Long term (current) use of aspirin; Z79.899 Other long term (current) drug therapy; Z81.8 Family history of other mental and behavioral disorders; I48.0 Paroxysmal atrial fibrillation; Z79.01 Long term (current) use of anticoagulants; Z82.5 Family history of asthma and other chronic lower respiratory diseases; Z83.3 Family history of diabetes mellitus; M17.0 Bilateral primary osteoarthritis of knee; M19.022 Primary osteoarthritis, left elbow; M19.021 Primary osteoarthritis, right elbow; E66.9 Obesity, unspecified; Z68.39 Body mass index [BMI] 39.0-39.9, adult
CPT/HCPCS: 36415; 71046; 80048; 80053; 80061; 82550; 82553; 82565; 83735; 83880; 84484; 85025; 85610; 85730; 93005; 93306; 93458; 96365; 96366; 96368; 96376; 99285; C1874